=== PATIENT | female | born 1990 | race Asian ===

== ENCOUNTER → 2023-09-16 | Outpatient (CLI) | payer OTHER ==
--- NOTE | 2023-09-16 17:24 | US ---
EXAMINATION TYPE: US thyroid st tissue head/neck DATE OF EXAM: 09/16/2023 COMPARISON: NONE CLINICAL INDICATION: Female, 33 years old with history of E04.9 GOITER; Patient denies any signs or s ymptoms at this time GLAND SIZE: Right Lobe: 5.1 x 1.3 x 1.4 cm Overall Parenchyma: homogeneous Left Lobe: 6.0 x 1.1 x 1.6 cm Overall Parenchyma: homogeneous Isthmus Thickness: 0.4 cm NODULES RIGHT: # of nodules measured on right: 0 LEFT: # of nodules measured on left: 0 ISTHMUS: # of nodules measured in the isthmus: 1 1. 0.5 X 0.3 x 0.5 cm solid or almost completely solid, hypoechoic nodule, which is wider than tall , with smooth margins, without echogenic foci. TR 4. Prior size: No prior Bilateral neck scanned, no evidence of lymphadenopathy. IMPRESSION: Enlarged thyroid gland with isthmus subcentimeter TR 4 nodule. According to ACR TI-RADS, no FNA or fo llow-up is recommended.
== END | disposition home or self-care (01) ==
LOC: RADUSWWP 13:20
PROVIDERS: ATTEND Family Medicine
DX: E04.1 Nontoxic single thyroid nodule (principal)
CPT/HCPCS: 76536

== ENCOUNTER → 2024-09-27 | Outpatient (CLI) | payer OTHER ==
[2024-09-27 15:35] LABS: Basophils # (A) 0.09 X 10*3/uL (0.00-0.10); Eosinophils # (A) 0.14 X 10*3/uL (0.04-0.35); Eosinophils % (A) 1.5 %; HCT 43.6 % (37.2-46.3); HGB 14.2 g/dL (12.0-15.0); Lymphocytes # (A) 2.43 X 10*3/uL (0.90-5.00); Lymphocytes % (A) 26.5 %; MCH 29.8 pg (27.0-32.0); MCHC 32.6 g/dL (32.0-37.0); MCV 91.6 FL (80.0-97.0); Mean Platelet Volume 11.4 FL (9.5-12.2); Monocytes # (A) 0.55 X 10*3/uL (0.20-1.00); NRBC Per 100 WBC 0 X 10*3/uL (0.00-0.01); Neutrophils # (A) 5.92 X 10*3/uL (1.80-7.70); Neutrophils % (A) 64.6 %; Platelet Count 248 X 10*3/uL (140-440); RBC 4.76 X 10*6/uL (4.10-5.20); RDW 12.2 % (11.5-14.5); WBC 9.17 X 10*3/uL (4.50-10.00)
[2024-09-27 16:07] LABS: % Iron Saturation 30.83 (12.00-45.00); ALT 16 U/L (8-44); AST 19 U/L (13-35); Albumin 4.8 g/dL (3.8-4.9); Alkaline Phosphatase 118 U/L (41-126); Blood Urea Nitrogen 16.8 mg/dL (9.0-27.0); Calcium 9.7 mg/dL (8.7-10.3); Carbon Dioxide 23.6 mmol/L (21.6-31.8); Chloride 104 mmol/L (96-109); Glucose 81 mg/dL (70-110); Iron 111 UG/DL (50-170); LDL Cholesterol,Calculated 91.7 mg/dL (0.0-131.0); Sodium 140 mmol/L (135-145); T4, Free (Free Thyroxine) 1.38 ng/dL (0.80-1.80); Total Bilirubin 0.5 mg/dL (0.3-1.2); Total Iron Binding Capacity 360 UG/DL (228-460); Total Protein 7.8 g/dL (6.2-8.2)
== END | disposition home or self-care (01) ==
LOC: LABWHC1 10:51
PROVIDERS: ATTEND Family Medicine
DX: D50.9 Iron deficiency anemia, unspecified (principal); E04.1 Nontoxic single thyroid nodule; E78.49 Other hyperlipidemia
CPT/HCPCS: 36415; 80053; 80061; 82607; 83540; 83550; 84439; 84443; 85025

== ENCOUNTER → 2024-10-25 | Outpatient (CLI) | payer OTHER ==
--- NOTE | 2024-10-25 14:17 | US ---
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 TECHNIQUE: Grayscale and color Doppler imaging of the thyroid gland. FINDINGS: GLAND SIZE: Right Lobe: 5.3 x 1.7 x 1.5 cm Overall Parenchyma: homogeneous Left Lobe: 5.2 x 1.5 x 1.8 cm Overall Parenchyma: homogeneous Isthmus Thickness: .4 cm NODULES RIGHT: # of nodules measured on right: 0 LEFT: # of nodules measured on left: 0 ISTHMUS: # of nodules measured in the isthmus: 1 1. .4 X .2 x .4 cm cystic or almost completely cystic, anechoic nodule, which is wider than tall, w ith smooth margins, without echogenic foci. TR 1 Prior size: .5 x .3 x .5 cm 2017 ACR TI-RADS LEVEL: TI-RADS 1 - BENIGN: No FNA Bilateral neck scanned, no evidence of lymphadenopathy. IMPRESSION: Benign finding Highest TI-RADS level nodule reported: 2017 ACR TI-RADS LEVEL: TI-RADS 1 - BENIGN: No FNA TI-RADS assessment score and recommendation for follow-up based on appropriate scoring and treatment protocols. TR1 Benign No FNA TR2 Not suspicious No FNA TR3: If nodule size is ? 2.5 cm, FNA is recommended. If nodule size is ? 1.5 cm, follow-up imaging at 1, 3, and 5 years is recommended. TR4: If nodule size is ? 1.5 cm, FNA is recommended. If nodule size is ? 1.0 cm, follow-up imaging at 1, 2, 3, and 5 years is recommended. TR5: If nodule size is ? 1.0 cm, FNA is recommended. If nodule size is ? 0.5 cm, annual follow-up for up to 5 years is recommended. TR 1 thyroid nodules have a 0.3 % risk of malignancy. TR 2 thyroid nodules have a 1.5 % risk of malignancy. TR 3 thyroid nodules have a 4.8 % risk of malignancy. TR 4 thyroid nodules have a 9.1 % risk of malignancy. TR 5 thyroid nodules have a 35 % risk of malignancy. [email or web address], , 10/25/2024 2:15 PM
== END | disposition home or self-care (01) ==
LOC: RADUSWWP 13:38
PROVIDERS: ATTEND Family Medicine
DX: E04.1 Nontoxic single thyroid nodule (principal)
CPT/HCPCS: 76536